=== PATIENT | male | born 1985 | race African-American/Black ===

== ENCOUNTER 2019-04-12 12:07 | Emergency (ER) | payer MEDICARE, OTHER ==
[~2019-04-12] VITALS: Ht 180.3 cm; Wt 74.4 kg
--- NOTE | 2019-04-12 12:19 | NUR ---
BERNIE FROM THE STREET FOR S/I, PLAN TO CUT SELF WITH BROKEN GLASS; PT TO BED 6, SI PRECAUTION STARTED, VSS, NAD NOTED, PENDING ER PROVIDER EDGARDO
--- NOTE | 2019-04-12 12:20 | NUR ---
[facility]ON SUP,TRINI MARKHAM, CALLED FOR A SITTER
[2019-04-12 12:34] LABS: BASOPHILS % (AUTO) 0.5 % (0.0-2.0); EOSINOPHILS % (AUTO) 1.8 % (0.0-6.0); HEMATOCRIT 43 % (39-51); HEMOGLOBIN 14.6 g/dL (13.5-17.5); LYMPHOCYTES # (AUTO) 1.2 /CMM (0.8-4.8); LYMPHOCYTES % (AUTO) 17.2 % (20.0-44.0); MEAN CORPUSCULAR HGB CONC 34 g/dl (31.0-36.0); MEAN CORPUSCULAR VOLUME 90 fL (80-96); MONOCYTES # (AUTO) 0.8 /CMM (0.1-1.30); MONOCYTES % (AUTO) 11.4 % (2.0-12.0); NEUTROPHILS # (AUTO) 4.8 /CMM (1.8-8.9); NEUTROPHILS % (AUTO) 69.1 % (43.0-81.0); PLATELET COUNT (AUTO) 211 /CMM (150-450); RED BLOOD CELL COUNT(AUTO) 4.75 MIL/uL (4.5-6.0)
[2019-04-12 12:40] LABS: CALCIUM, SERUM 9.4 mg/dL (8.5-10.1); CARBON DIOXIDE 26 mmol/L (21-32); CHLORIDE 102 mmol/L (98-107); CREATININE 0.9 mg/dL (0.6-1.3); GLUCOSE 98 mg/dL (74-106); POTASSIUM 3.4 mmol/L (3.5-5.1); SODIUM SERUM 139 mmol/L (136-145); UREA NITROGEN, BLOOD 8 mg/dL (7-18)
--- NOTE | 2019-04-12 12:43 | NUR ---
URINE SENT TO LAB
[2019-04-12 12:47] LABS: ACETAMINOPHEN 0 ug/ml (10-30); ALANINE AMINOTRANSFERASE 30 U/L (12-78); ALBUMIN 4.3 g/dL (3.4-5.0); ALCOHOL, BLOOD < 3 mg/dL (0-0); ALKALINE PHOSPHATASE 88 U/L (46-116); ASPARTATE AMINOTRANSFERASE 25 U/L (15-37); BILIRUBIN,DIRECT 0.1 mg/dL (0.0-0.2); BILIRUBIN,TOTAL 0.5 mg/dL (0.2-1.0); SALICYLATE 1.9 mg/dL (2.8-20.0); TOTAL PROTEIN, SERUM 7.7 g/dL (6.4-8.2)
[2019-04-12 12:53] LABS: APPEARANCE,URINE Clear (CLEAR); BILIRUBIN,URINE Negative (NEGATIVE); BLOOD, URINE Trace-intact Ery/uL (NEGATIVE); COLOR,URINE Yellow (YELLOW); KETONES,URINE Negative (NEGATIVE); LEUKOCYTE ESTERASE ,URINE Negative (NEGATIVE); NITRITE, URINE Negative (NEGATIVE); PROTEIN,URINE Negative (NEGATIVE); UGLUCOSE Negative (NEGATIVE); UROBILINOGEN,URINE 0.2 EU/dL (0.2)
[2019-04-12 13:24] LABS: BACTERIA,URINE Few /HPF (None Seen)
[2019-04-12 13:25] LABS: SQUAMOUS EPITHELIAL CELL,UR Few /HPF (None Seen); WBC,URINE 0-2 /HPF (0-3)
[2019-04-12] MEDS ORDERED: POTASSIUM CHLORIDE 20 MEQ TAB.PRT.SR PO ONE ×2 (14:00→14:03)
--- NOTE | 2019-04-12 14:25 | NUR ---
PER RESTAURANT ASSISTANT MANAGER CHENCHO, WORKING ON TRANSFER TO [facility]
--- NOTE | 2019-04-12 14:49 | NUR ---
PER CHENCHO, [facility] WILL CALL BACK WHEN PT IS ACCEPTED
[2019-04-12 15:16] VITALS: BP 143/88
--- NOTE | 2019-04-12 15:17 | NUR ---
TRANSFER INFO: [facility] ACCEPTING MD ELYSSA MARKHAM FOR REPORT [phone] EXT 240 [id number] ETA 1550 TRIP#[id number]
--- NOTE | 2019-04-12 15:47 | NUR ---
REPORT GIVEN TO YULY FOFANA AT [facility]
--- NOTE | 2019-04-12 17:11 | NUR ---
PT LEFT FOR [facility]IA [facility], VSS, NAD NOTED, REPORT GIVEN. LEFT IN STABLE CONDITION. ALL BELONGINGS AND PPW GIVEN TO AMBULANCE STAFF
== END 2019-04-12 17:14 | disposition short-term general hospital (02) ==
LOC: ER 12:07
DX: R45.851 Suicidal ideations (principal); I10 Essential (primary) hypertension; F17.200 Nicotine dependence, unspecified, uncomplicated
CPT/HCPCS: 36415; 80048; 80076; 80307; 81001; 85025; 99285; G0480; 80305; 81000-TC

== ENCOUNTER 2019-07-21 16:04 | Emergency (ER) | payer MEDICARE, MEDICAID ==
[~2019-07-21] VITALS: Ht 182.9 cm; Wt 77.1 kg
[2019-07-21 16:06] VITALS: BP 155/100
--- NOTE | 2019-07-21 16:07 | NUR ---
"ANNEMARIE LUNA 839 "from [facility] [place] waiting for voluntary psych went outside to cut himself" pt to bed 12, pt on s/i precautions, sitter at bedside, security called for pt to be wanded, pending md chavez
[2019-07-21] MEDS ORDERED: IBUPROFEN 600 MG TABLET PO ONE (16:30)
[2019-07-21] MEDS ORDERED: ZIPRASIDONE 20 MG CAPSULE PO ONE (16:30)
[2019-07-21] MEDS ORDERED: GUAIFENESIN LA 600 MG TABLET.SA PO ONE (16:35)
[2019-07-21 16:38] LABS: BASOPHILS % (AUTO) 0.4 % (0.0-2.0); EOSINOPHILS % (AUTO) 1.1 % (0.0-6.0); HEMATOCRIT 40 % (39-51); HEMOGLOBIN 13.7 g/dL (13.5-17.5); LYMPHOCYTES % (AUTO) 15.8 % (20.0-44.0); MEAN CORPUSCULAR HGB CONC 34 g/dl (31.0-36.0); MEAN CORPUSCULAR VOLUME 91 fL (80-96); MONOCYTES # (AUTO) 0.8 /CMM (0.1-1.30); NEUTROPHILS # (AUTO) 4.6 /CMM (1.8-8.9); NEUTROPHILS % (AUTO) 70.7 % (43.0-81.0); PLATELET COUNT (AUTO) 184 /CMM (150-450); RED BLOOD CELL COUNT(AUTO) 4.45 MIL/uL (4.5-6.0); WHITE BLOOD COUNT (AUTO) 6.4 K/uL (4.3-11.0)
[2019-07-21 16:41] LABS: APPEARANCE,URINE Clear (CLEAR); BILIRUBIN,URINE SMALL (NEGATIVE); BLOOD, URINE Negative Ery/uL (NEGATIVE); COLOR,URINE Yellow (YELLOW); KETONES,URINE 15 (NEGATIVE); LEUKOCYTE ESTERASE ,URINE Negative (NEGATIVE); NITRITE, URINE Negative (NEGATIVE); PROTEIN,URINE Negative (NEGATIVE); UGLUCOSE Negative (NEGATIVE); UROBILINOGEN,URINE 0.2 EU/dL (0.2)
[2019-07-21 16:48] LABS: BACTERIA,URINE None seen /HPF (None Seen); RBC,URINE 0-2 /HPF (0-2); SQUAMOUS EPITHELIAL CELL,UR None Seen /HPF (None Seen); WBC,URINE 0-2 /HPF (0-3)
[2019-07-21 16:49] LABS: MUCUS,URINE Rare /LPF (None Seen); URINE AMORPHOUS URATE Few /HPF (None Seen)
[2019-07-21 16:50] LABS: CALCIUM, SERUM 9.8 mg/dL (8.5-10.1); CARBON DIOXIDE 28 mmol/L (21-32); CHLORIDE 102 mmol/L (98-107); CREATININE 1.1 mg/dL (0.6-1.3); GLUCOSE 106 mg/dL (74-106); POTASSIUM 3.6 mmol/L (3.5-5.1); SODIUM SERUM 141 mmol/L (136-145); UREA NITROGEN, BLOOD 7 mg/dL (7-18)
[2019-07-21 17:00] LABS: ALANINE AMINOTRANSFERASE 25 U/L (12-78); ALBUMIN 4.5 g/dL (3.4-5.0); ALCOHOL, BLOOD < 3 mg/dL (0-0); ALKALINE PHOSPHATASE 80 U/L (46-116); ASPARTATE AMINOTRANSFERASE 22 U/L (15-37); BILIRUBIN,DIRECT 0.1 mg/dL (0.0-0.2); BILIRUBIN,TOTAL 0.5 mg/dL (0.2-1.0); SALICYLATE 2.8 mg/dL (2.8-20.0)
[2019-07-21 17:01] LABS: ACETAMINOPHEN 0 ug/ml (10-30)
--- NOTE | 2019-07-21 17:31 | NUR ---
FAXED & CALLED [facility] [phone]. THEY WILL REVIEW & CALL US BACK.
--- NOTE | 2019-07-21 17:52 | NUR ---
per [facility]. pt on a do not admit list. ed case manager will try [facility]
--- NOTE | 2019-07-21 20:05 | NUR ---
PER GRID OPERATOR. WORKING ON FINDING BEDS AT [facility]
--- NOTE | 2019-07-21 21:48 | NUR ---
Note chet in ED - 07/21/19 at 2157 by KEELY ACCEPTED BY [place]. # FOR REPORT [phone]. EXT [phone]
--- NOTE | 2019-07-21 23:53 | NUR ---
AMBULANCE ETA 0200 #[id number]
--- NOTE | 2019-07-21 23:59 | NUR ---
REPORT GIVEN TO SANDER MARKHAM.
== END 2019-07-22 03:03 | disposition short-term general hospital (02) ==
LOC: ER 16:08
DX: F29 Unspecified psychosis not due to a substance or known physiological condition (principal); F20.9 Schizophrenia, unspecified; I10 Essential (primary) hypertension; F17.200 Nicotine dependence, unspecified, uncomplicated; F60.0 Paranoid personality disorder; F41.9 Anxiety disorder, unspecified; F22 Delusional disorders; Z91.19 Patient's noncompliance with other medical treatment and regimen
CPT/HCPCS: 36415; 80048; 80076; 80305; 80307; 80329; 81001; 85025; 99285; G0480; 81000-TC